=== PATIENT | male | born 1995 | race American Indian/Alaskan Native ===

== ENCOUNTER 2017-05-15 15:46 | Emergency (ER) | payer SELFPAY ==
[2017-05-15] MEDS ORDERED: TORADOL IM ONE (18:33)
[2017-05-15] MEDS ORDERED: NORCO 5/325 PO ONE (18:34)
--- NOTE | 2017-05-15 19:36 | XRay Report ---
FINAL REPORT PROCEDURE: Lumbar spine. TECHNIQUE: Three views. HISTORY: Patient fell, lower back pain COMPARISON: No prior studies are available for comparison. FINDINGS: The lateral images are of limited quality. The lumbar vertebrae have normal height and alignment. There are no fractures. There is no spondylolisthesis. The disc spaces are well maintained. The sacrum and sacroiliac joints are unremarkable. IMPRESSION: Normal study.
[2017-05-15 20:24] VITALS: BP 192/131
--- NOTE | 2017-05-15 20:32 | Emergency Department Report ---
Entered by RICKIE BAIRES, acting as scribe for NISA GOMEZ PA. ED Back Pain/Injury HPI - General Chief Complaint: Back Pain/Injury Stated Complaint: LOWER BACK PAIN Time Seen by Provider: 05/15/17 18:30 Source: patient Limitations: No Limitations - History of Present Illness Initial Comments: 21 year old with PMHx of HTN presents to ED with c/o back pain that started 4 days ago. 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 Patient notes he tried picking up a box at work after accident, and was unable to do so. Patient describes pain as aching and tight and took OTC (Advil) with mild relief. Patient denies LOC, blurred vision, headache, dizziness, numbness, tingling, and bladder or bowel incontinence, saddle paresthesias. Denies any upper or lower extremity paresthesias denies any chest pain shortness of breath palpitations or diaphoresis. Patient is awake alert and oriented 3 does not appear to be in acute distress. Patient is ambulatory visibly walking in room without any assistance. Denies any rash and skin. Denies any nausea or vomiting. States he does take blood pressure medicine but cannot remember what the name of the medicine is. MD Complaint: back injury, fall -: days(s) (4) Similar Symptoms Previously: No Place: work Radiation: none Severity: moderate Severity scale (0 -10): 4 Quality: aching Consistency: constant Improves With: none Worsens With: movement Context: while lifting Associated Symptoms: denies other symptoms. denies: weakness, chest pain, numbness, cough, difficulty urinating, incontinence, fever/chills, headaches, abdominal pain, loss of appetite, nausea/vomiting, shortness of breath - Related Data Previous Rx's Medication Instructions Recorded Last Taken Type Acetaminophen [Acetaminophen TAB] 500 mg PO Q6HR PRN #30 tablet 05/15/17 Unknown Rx Cyclobenzaprine [Flexeril] 10 mg PO TID PRN #12 tablet 05/15/17 Unknown Rx Allergies Allergy/AdvReac Type Severity Reaction Status Date / Time No Known Allergies Allergy Verified 05/15/17 16:32 ED Review of Systems Comment: All other systems reviewed and negative Constitutional: denies: chills, fever, weakness Eyes: denies: eye pain, eye discharge, vision change ENT: denies: ear pain, throat pain Respiratory: denies: cough, shortness of breath, wheezing Cardiovascular: denies: chest pain, palpitations Endocrine: no symptoms reported Gastrointestinal: denies: abdominal pain, nausea, vomiting, diarrhea Genitourinary: denies: urgency, dysuria Musculoskeletal: back pain. denies: joint swelling, arthralgia Skin: denies: rash, lesions Neurological: denies: headache, weakness, numbness, paresthesias Psychiatric: denies: anxiety, depression Hematological/Lymphatic: denies: easy bleeding, easy bruising ED Past Medical Hx - Past Medical History Previous Medical History?: Yes Hx Hypertension: Yes - Surgical History Past Surgical History?: Yes Additional Surgical History: right leg - Social History Smoking Status: Never Smoker Substance Use Type: Alcohol - Medications Home Medications: Home Medications Medication Instructions Recorded Confirmed Last Taken Type Acetaminophen [Acetaminophen TAB] 500 mg PO Q6HR PRN #30 tablet 05/15/17 Unknown Rx Cyclobenzaprine [Flexeril] 10 mg PO TID PRN #12 tablet 05/15/17 Unknown Rx ED Physical Exam - General Limitations: No Limitations General appearance: alert, in no apparent distress - Head Head exam: Present: atraumatic, normocephalic - Eye Eye exam: Present: normal appearance, PERRL, EOMI - ENT ENT exam: Present: mucous membranes moist - Neck Neck exam: Present: normal inspection, full ROM. Absent: tenderness, meningismus - Respiratory Respiratory exam: Present: normal lung sounds bilaterally. Absent: respiratory distress, wheezes, rales, rhonchi, stridor - Cardiovascular Cardiovascular Exam: Present: regular rate, normal rhythm. Absent: systolic murmur, diastolic murmur, rubs, gallop - GI/Abdominal GI/Abdominal exam: Present: soft, normal bowel sounds. Absent: distended, tenderness, guarding, rebound, rigid, diminished bowel sounds - Rectal Rectal exam: Present: deferred - Extremities Exam Extremities exam: Present: normal inspection, full ROM, normal capillary refill. Absent: tenderness, pedal edema, joint swelling - Back Exam Back exam: Present: paraspinal tenderness - Neurological Exam Neurological exam: Present: alert, oriented X3, CN II-XII intact, normal gait - Psychiatric Psychiatric exam: Present: normal affect, normal mood - Skin Skin exam: Present: warm, dry, intact, normal color. Absent: rash ED Course Vital Signs 05/15/17 05/15/17 16:29 19:00 Temperature 99 F Pulse Rate 92 H Respiratory 16 18 Rate Blood Pressure 184/122 O2 Sat by Pulse 100 Oximetry ED Medical Decision Making - Medical Decision Making A/P: Acute lower back pain status post fall, hypertension 1-x-ray of lower back unremarkable. Patient is ambulatory strength 5 out of 5 all extremities no saddle paresthesias no bladder or bowel incontinence reported by patient no clinical signs of cord compression patient is ambulatory without assistance. 2-will give patient prescription for Tylenol and short course of Flexeril 3-patient's blood pressure remained high during ED course despite improvement in pain. Blood pressure diastolic 119, systolic 195 I checked myself multiple times. I advised patient that without controlling his blood pressure at least forming and basic diagnostics including head CT and blood work with EKG he is at risk for heart attack and stroke. Patient states that he has sufficient amounts of his blood pressure medicine at home but does not currently have primary care doctor. Patient stated that he had to go home for personal reasons and he could not stay at this time but that he would follow-up and return at his earliest convenience. This discussion was witnessed by nursing staff. I provided patient with follow up information for primary care. Also provided orthopedic referral for his lower back pain. Patient signed out AGAINST MEDICAL ADVICE ED Disposition Clinical Impression: Left against medical advice Lower back pain Qualifiers: Chronicity: acute Back pain laterality: unspecified Sciatica presence: without sciatica Qualified Code(s): M54.5 - Low back pain Fall Qualifiers: Encounter type: sequela Qualified Code(s): W19.XXXS - Unspecified fall, sequela Hypertension Qualifiers: Hypertension type: unspecified Qualified Code(s): I10 - Essential (primary) hypertension Disposition: DC-01 TO HOME OR SELFCARE Is pt being admited?: No Does the pt Need Aspirin: No Condition: Stable Instructions: Acute Low Back Pain (ED), Back Pain (ED), Hypertension (ED), Against Medical Advice (ED) Prescriptions: Acetaminophen [Acetaminophen TAB] 500 mg PO Q6HR PRN #30 tablet PRN Reason: Pain Cyclobenzaprine [Flexeril] 10 mg PO TID PRN #12 tablet PRN Reason: Muscle Spasm Referrals: [facility] [Provider Group] - 3-5 Days CHACHA CLAUDIO MD [Staff Physician] - 3-5 Days [facility] [Outside] - 3-5 Days Forms: Work/School Release Form(ED) Time of Disposition: 20:11 This documentation as recorded by the VIRY cuello PEARL,accurately reflects the service I personally performed and the decisions made by ,NISA GOMEZ PA.
== END 2017-05-15 20:45 | disposition home or self-care (01) ==
LOC: ED 15:46
DX: M54.5 Low back pain (principal); I10 Essential (primary) hypertension; W18.30XA Fall on same level, unspecified, initial encounter; Y93.9 Activity, unspecified; Y92.9 Unspecified place or not applicable; Y99.9 Unspecified external cause status
CPT/HCPCS: 72100; 96372; 99283; J1885

== ENCOUNTER 2017-06-27 19:59 | Emergency (ER) | payer SELFPAY ==
[2017-06-28] MEDS ORDERED: TORADOL IM ONE (01:14)
--- NOTE | 2017-06-28 01:18 | Emergency Department Report ---
ED Back Pain/Injury HPI - General Chief Complaint: Back Pain/Injury Stated Complaint: NUMBNESS IN R LEG Time Seen by Provider: 06/28/17 01:08 Source: patient Limitations: No Limitations - History of Present Illness Initial Comments: This is a 21-year-old male nontoxic, well nourished in appearance, no acute signs of distress presents to the ED complaining of back pain that radiates to right lower extremity intermittently for one month. Patient stated last month he was in an accident at work when he slipped and hit the low back against the side of trunk and then developed low back pain with right sided tingling and pain sensation. Patient stated went to urgent care and has been given pain medication such subsides the pain but pain returns from time to time. Patient yasmeenetkami in the ED denies any numbness or tingling or the extermities and stated just has low back pain. Patient denies bladder or bowel stability, numbness, tingling, fever, chills, nausea, vomiting, chest pain, shortness of breath, headache or stiff neck. Patient denies any allergies. Past medical history includes hypertension with decreased that he is following up with a primary care doctor for. MD Complaint: back pain -: Gradual, month(s) (1) Similar Symptoms Previously: Yes Place: work Radiation: right leg Severity: mild Severity scale (0 -10): 6 Quality: aching Consistency: intermittent Improves With: supine Worsens With: movement, walking Context: fall Associated Symptoms: denies other symptoms. denies: confusion, weakness, chest pain, numbness, difficulty walking, cough, difficulty urinating, diaphoresis, incontinence, fever/chills, headaches, abdominal pain, loss of appetite, malaise , nausea/vomiting, rash, seizure, shortness of breath, syncope - Related Data Previous Rx's Medication Instructions Recorded Last Taken Type Acetaminophen [Acetaminophen TAB] 500 mg PO Q6HR PRN #30 tablet 05/15/17 Unknown Rx Cyclobenzaprine [Flexeril] 10 mg PO TID PRN #12 tablet 05/15/17 Unknown Rx Cyclobenzaprine [Flexeril] 10 mg PO TID PRN #15 tablet 06/28/17 Unknown Rx Ibuprofen [Motrin 600 MG tab] 600 mg PO Q8H PRN #30 tablet 06/28/17 Unknown Rx Allergies Allergy/AdvReac Type Severity Reaction Status Date / Time No Known Allergies Allergy Verified 05/15/17 16:32 ED Review of Systems ROS: Stated complaint: NUMBNESS IN R LEG Other details as noted in HPI Constitutional: denies: chills, fever Eyes: denies: eye pain, eye discharge, vision change ENT: denies: ear pain, throat pain Respiratory: denies: cough, shortness of breath, wheezing Cardiovascular: denies: chest pain, palpitations Endocrine: no symptoms reported Gastrointestinal: denies: abdominal pain, nausea, diarrhea Genitourinary: denies: urgency, dysuria Musculoskeletal: denies: back pain, joint swelling, arthralgia Skin: denies: rash, lesions Neurological: denies: headache, weakness, paresthesias Psychiatric: denies: anxiety, depression Hematological/Lymphatic: denies: easy bleeding, easy bruising ED Past Medical Hx - Past Medical History Hx Hypertension: Yes - Surgical History Additional Surgical History: right leg - Social History Smoking Status: Never Smoker Substance Use Type: None - Medications Home Medications: Home Medications Medication Instructions Recorded Confirmed Last Taken Type Acetaminophen [Acetaminophen TAB] 500 mg PO Q6HR PRN #30 tablet 05/15/17 Unknown Rx Cyclobenzaprine [Flexeril] 10 mg PO TID PRN #12 tablet 05/15/17 Unknown Rx Cyclobenzaprine [Flexeril] 10 mg PO TID PRN #15 tablet 06/28/17 Unknown Rx Ibuprofen [Motrin 600 MG tab] 600 mg PO Q8H PRN #30 tablet 06/28/17 Unknown Rx ED Physical Exam - General Limitations: No Limitations General appearance: alert, in no apparent distress - Head Head exam: Present: atraumatic, normocephalic, normal inspection - Eye Eye exam: Present: normal appearance, PERRL, EOMI. Absent: scleral icterus, conjunctival injection, nystagmus, periorbital swelling, periorbital tenderness Pupils: Present: normal accommodation - ENT ENT exam: Present: normal exam, normal orophraynx, mucous membranes moist, TM's normal bilaterally, normal external ear exam - Neck Neck exam: Present: normal inspection, full ROM. Absent: tenderness, meningismus, lymphadenopathy, thyromegaly - Respiratory Respiratory exam: Present: normal lung sounds bilaterally. Absent: respiratory distress, wheezes, rales, rhonchi, stridor, chest wall tenderness, accessory muscle use, decreased breath sounds, prolonged expiratory - Cardiovascular Cardiovascular Exam: Present: regular rate, normal rhythm, normal heart sounds. Absent: irregular rhythm, systolic murmur, diastolic murmur, rubs, gallop - GI/Abdominal GI/Abdominal exam: Present: soft, normal bowel sounds. Absent: distended, tenderness, guarding, rebound, rigid, diminished bowel sounds - Rectal Rectal exam: Present: deferred - Extremities Exam Extremities exam: Present: normal inspection, full ROM, normal capillary refill. Absent: tenderness, pedal edema, joint swelling, calf tenderness - Expanded Lower Extremity Exam Right Hip exam: Present: normal inspection, full ROM, external rotation, internal rotation, pelvic stability. Absent: tenderness, swelling, abrasion, laceration , deformity, crepidus, dislocation, erythema, shortening Upper Leg exam: Present: normal inspection, full ROM. Absent: tenderness, swelling, abrasion, laceration, ecchymosis, deformity, crepidus, dislocation, erythema Knee exam: Present: normal inspection, full ROM, full knee extension. Absent: tenderness, swelling, abrasion, laceration, ecchymosis, deformity, crepidus, dislocation, erythema, effusion, pain w/ pronation/supination, posterior draw sign, pain/laxity with valgus, pain/laxity with varus Lower Leg exam: Present: normal inspection, full ROM. Absent: tenderness, swelling, abrasion, laceration, ecchymosis, deformity, crepidus, dislocation, erythema, palpable cord, Jerri's sign Ankle exam: Present: normal inspection, full ROM. Absent: tenderness, swelling , abrasion, laceration, ecchymosis, deformity, crepidus, dislocation, erythema, anterior draw sign Foot/Toe exam: Present: normal inspection, full ROM. Absent: tenderness, swelling, abrasion, laceration, ecchymosis, deformity, crepidus, dislocation, erythema, amputation, puncture wound, foreign body, calcaneal tenderness, tenderness at base of 5th metatarsal, nail avulsion, subungual hematoma Neuro vascular tendon exam: Present: no vascular compromise. Absent: pulse deficit, abnormal cap refill, motor deficit, sensory deficit, tendon deficit, extremity cold to touch, pallor, abnormal 2-point discrimination, decreased fine /light touch, foot drop, peroneal nerve deficit, significant pain with passive ROM of distal joint Gait: Positive: observed and normal - Back Exam Back exam: Present: normal inspection, full ROM. Absent: tenderness, CVA tenderness (R), CVA tenderness (L), muscle spasm, paraspinal tenderness, vertebral tenderness, rash noted - Neurological Exam Neurological exam: Present: alert, oriented X3, CN II-XII intact, normal gait, reflexes normal - Psychiatric Psychiatric exam: Present: normal affect, normal mood - Skin Skin exam: Present: warm, dry, intact, normal color. Absent: rash ED Course Vital Signs 06/27/17 21:11 Temperature 98.3 F Pulse Rate 92 H Respiratory 16 Rate Blood Pressure 164/103 O2 Sat by Pulse 98 Oximetry - Reevaluation(s) Reevaluation #1: 06/28/17 01:20 Patient speaking in full sentences with no signs of distress. ED Medical Decision Making - Radiology Data Radiology results: report reviewed interpreted by me: Dictated by radiologist Negative findings of any abnormalities. Normal results. Critical care attestation.: If time is entered above; I have spent that time in minutes in the direct care of this critically ill patient, excluding procedure time. ED Disposition Clinical Impression: Low back strain Qualifiers: Encounter type: initial encounter Qualified Code(s): S39.012A - Strain of muscle, fascia and tendon of lower back, initial encounter Disposition: TO HOME OR SELFCARE Is pt being admited?: No Does the pt Need Aspirin: No Condition: Stable Instructions: Low Back Strain (ED), Cyclobenzaprine (By mouth), Ibuprofen (By mouth) Additional Instructions: Follow-up with your primary care doctor in 3-5 days or if symptoms worsen such as bladder or bowel stability, chest pain, short of breath, numbness or tingling sensation in extremities, headache, dizziness, visual changes, nausea vomiting, or abdominal pain, return back to emergency room as was possible. Take ibuprofen and Flexeril as prescribed. Do not operate heavy machinery while taking Flexeril due to sedation Prescriptions: Cyclobenzaprine [Flexeril] 10 mg PO TID PRN #15 tablet PRN Reason: Muscle Spasm Ibuprofen [Motrin 600 MG tab] 600 mg PO Q8H PRN #30 tablet PRN Reason: Pain Referrals: PRIMARY CARE, [Primary Care Provider] - 3-5 Days CHAD ALVARADO MD [Staff Physician] - 3-5 Days [facility] [Outside] - 3-5 Days [facility] [Outside] - 3-5 Days Forms: Work/School Release Form(ED)
--- NOTE | 2017-06-28 02:45 | Cat Scan Report ---
FINAL REPORT PROCEDURE: CT LUMBAR SPINE WO CON TECHNIQUE: Computerized axial tomography of the lumbar spine was performed from T12 to the sacrum without contrast material. HISTORY: spinal pain COMPARISON: No prior studies are available for comparison. FINDINGS: L1-2: No significant abnormality. L2-3: No significant abnormality. L3-4: No significant abnormality. L4-5: No significant abnormality. L5-S1: No significant abnormality. Other: No acute fracture or dislocation. Spinal canal is adequate at all levels.. IMPRESSION: Normal evaluation of the lumbar spine.
[2017-06-28 04:56] VITALS: BP 155/92
== END 2017-06-28 03:30 | disposition home or self-care (01) ==
LOC: ED 19:59
DX: S39.012A Strain of muscle, fascia and tendon of lower back, initial encounter (principal); I10 Essential (primary) hypertension; W01.198A Fall on same level from slipping, tripping and stumbling with subsequent striking against other object, initial encounter; Y93.9 Activity, unspecified; Y99.9 Unspecified external cause status; Y92.89 Other specified places as the place of occurrence of the external cause
CPT/HCPCS: 72131; 96372; 99283; J1885

== ENCOUNTER 2018-02-03 16:26 | Inpatient (IN) | payer OTHER ==
[2018-02-03] MEDS ORDERED: NORVASC PO ONE (18:08)
[2018-02-03] MEDS ORDERED: ZESTRIL PO ONE (18:08)
[2018-02-03] MEDS ORDERED: NORMODYNE IV ONE ×2 (18:17→20:31)
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
[2018-02-03 18:29] LABS: Basophils # (Auto) 0.1 K/mm3 (0.0-0.1); Basophils % (Auto) 1.4 % (0.0-1.8); Eosinophils # (Auto) 0.1 K/mm3 (0.0-0.4); Eosinophils % (Auto) 3.1 % (0.0-4.3); Hematocrit 43.7 % (35.5-45.6); Hemoglobin 14.7 gm/dl (11.8-15.2); Lymphocytes # (Auto) 1.2 K/mm3 (1.2-5.4); Lymphocytes % (Auto) 27.9 % (13.4-35.0); Mean Corpuscular HGB Conc 34 % (32-34); Mean Corpuscular Hemoglobin 28 pg (28-32); Mean Corpuscular Volume 84 fl (84-94); Monocytes # (Auto) 0.3 K/mm3 (0.0-0.8); Monocytes % (Auto) 7.8 % (0.0-7.3); Platelet Count 205 K/mm3 (140-440); Red Blood Count 5.21 M/mm3 (3.65-5.03)
[2018-02-03 18:50] LABS: Alanine Aminotransferase 32 units/L (7-56); Albumin 3.9 g/dL (3.9-5); BUN/Creatinine Ratio 15; Blood Urea Nitrogen 21 mg/dL (9-20); Calcium 9.1 mg/dL (8.4-10.2); Hemolysis Index 15
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
[2018-02-03] MEDS ORDERED: CARDENE 50 MG in NACL 0.9% 250ML 230 ML IV SCH (22:00)
[2018-02-03] MEDS ORDERED: ATIVAN ONE (22:07)
[2018-02-03] MEDS ORDERED: fentaNYL DRIP Premix 2,000 MCG/100 ML BAG IV ONE (22:08)
[2018-02-03] MEDS ORDERED: XANAX PO PRN (22:15)
[2018-02-03] MEDS ORDERED: SODIUM CHLORIDE FLUSH SYRINGE 10 ML IV PRN (22:15)
[2018-02-03] MEDS ORDERED: PERCOCET 5/325 PO PRN (22:15)
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
[2018-02-04] MEDS: LOPRESSOR PO SCH ×2 (05:05→10:54)
[2018-02-04] MEDS ORDERED: ZESTRIL ONE (09:52)
[2018-02-04] MEDS: ZESTRIL PO SCH ×2 (09:56→10:07)
[2018-02-04] MEDS: HCTZ PO SCH ×2 (09:56→10:36)
[2018-02-04] MEDS ORDERED: SODIUM CHLORIDE FLUSH SYRINGE 10 ML IV SCH (10:00)
[2018-02-04] MEDS ORDERED: PEPCID PO SCH (10:00)
[2018-02-04] MEDS ORDERED: LOVENOX SUB-Q SCH (10:00)
[2018-02-04] MEDS ORDERED: COLACE PO SCH (10:00)
--- NOTE | 2018-02-04 12:07 | Progress Note ---
Hospitalist Physical - Constitutional Vitals: Temp Pulse Resp BP Pulse Ox 98.9 F 93 H 14 165/110 93 02/03/18 19:09 02/04/18 10:54 02/04/18 10:30 02/04/18 10:54 02/04/18 10:30 General appearance: Present: no acute distress, obese Results - Labs CBC & Chem 7: 02/03/18 18:16 02/03/18 18:16 Labs: Laboratory Last Values WBC 4.2 K/mm3 (4.5-11.0) L 02/03/18 18:16 RBC 5.21 M/mm3 (3.65-5.03) H 02/03/18 18:16 Hgb 14.7 gm/dl (11.8-15.2) 02/03/18 18:16 Hct 43.7 % (35.5-45.6) 02/03/18 18:16 MCV 84 fl (84-94) 02/03/18 18:16 MCH 28 pg (28-32) 02/03/18 18:16 MCHC 34 % (32-34) 02/03/18 18:16 RDW 14.0 % (13.2-15.2) 02/03/18 18:16 Plt Count 205 K/mm3 (140-440) 02/03/18 18:16 Lymph % (Auto) 27.9 % (13.4-35.0) 02/03/18 18:16 [place] % (Auto) 7.8 % (0.0-7.3) H 02/03/18 18:16 Eos % (Auto) 3.1 % (0.0-4.3) 02/03/18 18:16 Baso % (Auto) 1.4 % (0.0-1.8) 02/03/18 18:16 Lymph # 1.2 K/mm3 (1.2-5.4) 02/03/18 18:16 [place] # 0.3 K/mm3 (0.0-0.8) 02/03/18 18:16 Eos # 0.1 K/mm3 (0.0-0.4) 02/03/18 18:16 Baso # 0.1 K/mm3 (0.0-0.1) 02/03/18 18:16 Seg Neutrophils % 59.8 % (40.0-70.0) 02/03/18 18:16 Seg Neutrophils # 2.5 K/mm3 (1.8-7.7) 02/03/18 18:16 Sodium 139 mmol/L (137-145) 02/03/18 18:16 Potassium 4.2 mmol/L (3.6-5.0) 02/03/18 18:16 Chloride 100.0 mmol/L (98-107) 02/03/18 18:16 Carbon Dioxide 29 mmol/L (22-30) 02/03/18 18:16 Anion Gap 14 mmol/L 02/03/18 18:16 BUN 21 mg/dL (9-20) H 02/03/18 18:16 Creatinine 1.4 mg/dL (0.8-1.5) 02/03/18 18:16 Estimated GFR > 60 ml/min 02/03/18 18:16 BUN/Creatinine Ratio 15 % 02/03/18 18:16 Glucose 108 mg/dL (75-100) H 02/03/18 18:16 Calcium 9.1 mg/dL (8.4-10.2) 02/03/18 18:16 Total Bilirubin 0.40 mg/dL (0.1-1.2) 02/03/18 18:16 AST 24 units/L (5-40) 02/03/18 18:16 ALT 32 units/L (7-56) 02/03/18 18:16 Alkaline Phosphatase 69 units/L (35-129) 02/03/18 18:16 Troponin T < 0.010 ng/mL (0.00-0.029) 02/04/18 05:09 Total Protein 7.0 g/dL (6.3-8.2) 02/03/18 18:16 Albumin 3.9 g/dL (3.9-5) 02/03/18 18:16 Albumin/Globulin Ratio 1.3 % 02/03/18 18:16
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
[2018-02-04 13:31] VITALS: BP 152/99
--- NOTE | 2018-02-04 16:13 | Event Note ---
Date: 02/04/18 Patient discharged prior to ICU admission or my evaluation
== END 2018-02-04 13:32 | disposition home or self-care (01) | DRG 206 ==
LOC: ED 16:26 → CC1 22:15
PROVIDERS: ADMIT Internal Medicine; ATTEND Internal Medicine
DX: M94.0 Chondrocostal junction syndrome [Tietze] (principal); I16.1 Hypertensive emergency; Z68.42 Body mass index [BMI] 45.0-49.9, adult; I10 Essential (primary) hypertension; M25.511 Pain in right shoulder; Z91.14 Patient's other noncompliance with medication regimen; E66.01 Morbid (severe) obesity due to excess calories; V43.62XA Car passenger injured in collision with other type car in traffic accident, initial encounter; Y93.89 Activity, other specified; Y92.488 Other paved roadways as the place of occurrence of the external cause; Y99.8 Other external cause status
CPT/HCPCS: 36415; 71250; 72100; 80053; 84484; 85025; 93005; 93010; J1650; J2060; J3010; J7050